=== PATIENT | male | born 1990 | race Caucasian/White ===

== ENCOUNTER 2020-02-13 14:26 | Emergency (ER) | payer BC, SELFPAY ==
[2020-02-13 14:30] VITALS: BMI 20.9
[2020-02-13 14:33] VITALS: BP 121/81; PULSE 90; RESP 16; TEMP 36.6; O2SAT 99
--- NOTE | 2020-02-13 14:37 | CT_ITS ---
WS: [id number] CT chest w con* [id number] REASON FOR EXAM: fall 25 feet off house. .. IV CONTRAST ADMINISTERED: Omnipaque 300, 95 mL. TOTAL EXAM DLP: 471.[address] scans at [facility] use at least one of these dose optimization techniques: automat ed exposure control; mA and/or kV adjustment per patient size (includes targeted exams where dose is matched to clinical indication); or iterative reconstruction. FINDINGS this study shows a fracture of the eighth rib at its angle. No pneumothorax or pleural react ion is seen. The pulmonary arteries fill readily there is no evidence of thromboembolic changes or pn eumonia contusions. The thyroid right and left lobes were normal. Clavicle show no fractures. The perfusion lung garcia show normal perfusion no evidence of abnormalities of the peripheral lungs. The mediastinum show no abnormalities. The aorta was normal no dissection is seen. No heart chamber changes are seen. The liver was normal as well as the spleen with no lacerations seen. There is considerable debris seen in the stomach no free fluid or air intra-abdominally is noted. Both kidneys are normal show no lacerations or hemorrhage. The gallbladder was normal. CT/CT chest w con* [id number] IMPRESSION: The remaining chest was within normal limits. Fracture of the eighth rib on the right
--- NOTE | 2020-02-13 14:37 | XR_ITS ---
WS: [id number] XR chest 1V portable [id number] REASON FOR EXAM: fall FINDINGS: The visible rib cage shows no definite fractures. The clavicles and shoulders are normal. The lung garcia are well aerated. No lung contusions, pneumothorax, pneumonia, or pulmonary edema. The hilum and apices are normal. No osseous abnormalities. XR/XR chest 1V portable [id number] IMPRESSION: Negative chest
--- NOTE | 2020-02-13 14:38 | ED_ITS ---
HPI - Fall General: Chief Complaint: Fall Stated Complaint: fell off house/rib pain Time Seen by Provider: 02/13/20 14:35 Source: patient Mode of arrival: ambulatory Limitations: no limitations History of Present Illness: HPI Narrative: 29-year-old male states he is working on a house and fell off a two-story roof roughly 20 feet. He states he landed on his right side has right rib pain since then. He denies any other injuries and has been amatory since the event. States pain is sharp in nature and rates it a 6 out of 10. Denies any shortness of breath. MD complaint: fall Onset (ago): minute(s) Fall from: from height (distance) Associated symptoms-after fall: Reports chest pain; Denies abdominal pain, headache(s) or neck pain Review of Systems Const: Denies: fever(s), chills, body aches or change in appetite Eyes: Denies: blurry vision or eye discomfort ENMT: Denies: throat pain or dental pain Card: Reports: chest pain Resp: Denies: dyspnea GI: Denies: abdominal pain, nausea, vomiting or diarrhea : Denies: dysuria Musc: Denies: neck pain or back pain Skin/Breast: Denies: rash Neuro: Denies: headache(s) Psych: Denies: depression Jesus/Lymph: Denies: easy bruising All/Imm: Denies: urticaria PFSH ED PFSH: Social History Smoking and tobacco status: never smoked Physical Exam Const: COMMON NORMALS: no acute distress, patient oriented x3 and healthy appearing HENMT: COMMON NORMALS: normocephalic and atraumatic HEAD & SCALP: normocephalic and atraumatic Eye: COMMON NORMALS: Equal, round and reactive pupils present and EOMs intact bilaterally PUPIL: Yes Equal, round and reactive pupils present Neck/C-Spine: COMMON NORMALS: full ROM and supple Chest: COMMONS NORMALS: normal inspection of the chest OTHER: tender over right chest Resp: COMMON NORMALS: normal respiratory effort, No retractions, No use of accessory muscles and clear to auscultation bilaterally AUSCULTATION: clear to auscultation bilaterally Cardio: COMMON NORMALS: regular rate, regular rhythm and No murmurs present (Cardio) RATE: regular rate RHYTHM: regular rhythm GI: COMMON NORMALS: Normal to inspection, nondistended, normoactive bowel sounds present, Soft to palpation, non-tender and no masses PALPATION: Yes Soft to palpation Extremity: COMMON NORMALS: normal to inspection and full ROM Neuro: COMMON NORMALS: patient oriented x3, moves all extremities and no focal motor deficits Psych: COMMON NORMALS: mental status grossly normal, Normal thought process present and cooperative THOUGHT PROCESS: Normal thought process present Skin: COMMON NORMALS: no rashes or lesions noted and no wounds GENERAL SKIN EXAM: no rashes or lesions noted Course Vital Signs: Vital signs: Vital Signs Temperature 97.9 F 02/13/20 14:33 Pulse Rate 90 02/13/20 14:33 Respiratory Rate 18 02/13/20 15:29 Blood Pressure 142/96 02/13/20 15:29 Pulse Oximetry 100 02/13/20 15:29 MDM - Fall MDM Narrative: Medical decision making narrative: Patient presents here with a rib fracture from a fall. Patient has no signs of lung injuries and no other injuries noted. Patient is stable for discharge and is to follow-up with his primary care doctor in 3 to 5 days. Lab Data: Labs: Lab Results 02/13/20 02/13/20 Range/Units 14:48 14:48 WBC 7.2 (4.0-10.0) 10^3/ uL RBC 5.25 (4.1-5.3) 10^6/u L Hgb 15.6 (11.7-16.6) g/dL Hct 45.5 (42.0-52.0) % MCV 86.7 (80-94) fL MCH 29.7 (28.0-34.0) pg MCHC 34.3 (30.0-36.0) g/dL RDW 12.6 (12.1-15.1) % Plt Count 245 (130-400) 10^3/c mm MPV 10.0 (7.4-10.4) fL Neut % (Auto) 57.6 % Lymph % (Auto) 34.5 % [place] % (Auto) 4.7 % Eos % (Auto) 1.1 % Baso % (Auto) 0.4 % Neut # (Auto) 4.2 (1.8-7.7) 10^3/u L Lymph # (Auto) 2.5 (0.8-4.8) 10^3/u L [place] # (Auto) 0.3 (0.2-0.9) 10^3/u L Eos # (Auto) 0.1 (0.0-0.8) 10^3/u L Baso # (Auto) 0.0 (0.0-0.1) 10^3/u L Nucleated RBC % (a uto) 0 % Nucleated RBCs # 0.0 /100WBC Sodium 140 (136-145) mmol/L Potassium 3.6 (3.5-5.1) mmol/L Chloride 100 (98-107) mmol/L Carbon Dioxide 26 (22-29) mmol/L Anion Gap 17.6 (5-19) BUN 19 (6-20) mg/dL Creatinine 1.1 (0.7-1.2) mg/dL GFR Calculation 80.3 L (90-130) mL/min Glucose 108 (65-115) mg/dL Calculated Osmolal ity 287 (285-295) mOsm/k g Calcium 9.9 (8.5-10.5) mg/dL Total Bilirubin 0.5 (0.15-1.2) mg/dL AST 281 H (0-40) U/L ALT 236 H (0-41) U/L Alkaline Phosphata se 59 (40-130) IU/L Total Protein 7.7 (6.6-8.7) g/dL Albumin 5.5 H (3.5-5.2) g/dL Globulin 2.2 (1.3-4.6) g/dL Imaging Data^: CXR: Radiologist's impression: [place] [address] XRay Report Signed Patient: Germain Woods Unit #: [id number] : 1990 Age/Sex: 29 / M ADM Date: 02/13/20 Loc: ER Room/Bed: Attending Dr: Ordering Provider/Ordering MD: Radha Duarte MD Date of Service: 02/13/20 Procedure(s): XR chest 1V portable [id number] Accession Number(s): [id number] Report Number: [id number] WS: [id number] XR chest 1V portable [id number] REASON FOR EXAM: fall FINDINGS: The visible rib cage shows no definite fractures. The clavicles and shoulders are normal. The lung garcia are well aerated. No lung contusions, pneumothorax, pneumonia, or pulmonary edema. The hilum and apices are normal. No osseous abnormalities. XR/XR chest 1V portable [id number] IMPRESSION: Negative chest CT Abd/Pel: Radiologist's impression: [address] [place] [address] CT Scan Report Signed Patient: Quique Bettencourt Unit #: [id number] : 01/02/1942 Age/Sex: 78 / M ADM Date: 02/13/20 Loc: ER Room/Bed: Attending Dr: Ordering Provider/Ordering MD: Radha Duarte MD Date of Service: 02/13/20 Procedure(s): CT chest abd pel w con* Accession Number(s): [id number] Report Number: [id number] WS: [id number] Examination: CT of the chest, abdomen pelvis. HISTORY: Abdominal pain TECHNIQUE: Patient was scanned with Omnipaque 300, 95 mL. FINDINGS: The chest shows previous sternotomy. The aorta shows a prominent stent in the right aorta. The azygos lymph node shows calcification. There is chronic obstructive pulmonary disease in both lung garcia which are mildly hypoaerated The pulmonary arteries fill readily no evidence of thromboembolic disease. The descending thoracic aorta shows heavy arteriosclerotic changes. There is a small amount of right pleural effusion evident. Along the left pleural surfaces heavy calcification over the diaphragm. This suggests asbestosis or previous inflammatory changes with calcification. CT of the abdomen pelvis show small amount of ascites bilaterally. The liver appears to be mildly contracted. The gallbladder shows a large solitary stone. The pancreas head, body, tail are normal. The spleen is of normal size and there is fluid seen adjacent to the spleen. The aorta inferior vena cava show no definite aneurysms. Anterior sclerotic changes of the iliac arteries. The distal aorta shows ectasia but no aneurysm. There is diverticulosis of the descending sigmoid colon. The urinary bladder was normal. The prostate is enlarged measures 6.6 x 4.8 cm concretions in the prostate are seen. The rectum is normal. The right kidney is a cyst measures 1.7 cm the left kidney appears to be normal. The lumbar spine shows mild degenerate changes the bony pelvis was normal. There is no definite lymphadenopathy seen in the aortic area CT/CT chest abd pel w con* IMPRESSION: There is evidence of a large defect in the gallbladder which appears to be a large stone. There is fluid seen in the right costophrenic angle. There is a small amount of bilateral ascites. The liver is slightly small. A small cyst of the right kidney. Ectasia of the distal abdominal aorta. There is calcification overriding the left hemidiaphragm raises the question of asbestosis. 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 Tendon is seen in the ascending aorta. Discharge Plan Discharge Patient Disposition: Home, Self-Care Clinical Impression: Right rib fracture Qualifiers: Encounter type: initial encounter Rib fracture type: single rib Fracture type: closed Qualified Code(s): S22.31XA - Fracture of one rib, right side, initial encounter for closed fracture Condition: Stable Prescriptions: [place] 5-325 mg tablet 1 tab PO Q6H PRN (Reason: pain) Qty: 14 RF: 0 No Action No Known Home Medications RF: 0 Referrals: Reno Ferguson MD [Primary Care Provider] - 1-3 days Discharge Diet: Advance as tolerated Discharge Activity: Resume usual activity Patient Instructions: Rib Fracture (ED) Coding Level of Care Code ED Fast Food Supervisor for Julieng Fwd Exam Comprehensive
[2020-02-13] MEDS: ondansetron 2 mg/ML SDV 2 mL 4 MG IVP (14:47)
[2020-02-13 14:49] VITALS: RESP 16; O2SAT 100
[2020-02-13] MEDS: morphine 4 mg/mL SDV 1 mL IVP (14:49)
[2020-02-13 14:58] LABS: Basophils % 0.4 %; Eosinophils # 0.1 10^3/uL (0.0-0.8); Eosinophils % 1.1 %; Hematocrit 45.5 % (42.0-52.0); Hemoglobin 15.6 g/dL (11.7-16.6); Lymphocytes # 2.5 10^3/uL (0.8-4.8); Lymphocytes % 34.5 %; Mean Corpuscular HGB Conc 34.3 g/dL (30.0-36.0); Mean Corpuscular Hemoglobin 29.7 pg (28.0-34.0); Mean Corpuscular Volume 86.7 fL (80-94); Monocytes # 0.3 10^3/uL (0.2-0.9); Monocytes % 4.7 %; Neutrophils # 4.2 10^3/uL (1.8-7.7); Neutrophils % 57.6 %; Nucleated Red Blood Cells % 0 %; Platelet Count 245 10^3/cmm (130-400); Red Blood Count 5.25 10^6/uL (4.1-5.3); Red Cell Distribution Width 12.6 % (12.1-15.1); White Blood Count 7.2 10^3/uL (4.0-10.0)
[2020-02-13] MEDS: iohexol 300 mg/mL 100 mL Btl IV (15:21)
[2020-02-13 15:29] VITALS: BP 142/96; RESP 18; O2SAT 100
[2020-02-13 15:29] LABS: Alanine Aminotransferase 236 U/L (0-41); Albumin Level 5.5 g/dL (3.5-5.2); Alkaline Phosphatase 59 IU/L (40-130); Anion Gap 17.6 (5-19); Aspartate Amino Transferase 281 U/L (0-40); Blood Urea Nitrogen 19 mg/dL (6-20); Calcium 9.9 mg/dL (8.5-10.5); Carbon Dioxide 26 mmol/L (22-29); Chloride 100 mmol/L (98-107); Globulin 2.2 g/dL (1.3-4.6); Glomerular Filtration Rate 80.3 mL/min (90-130); Glucose 108 mg/dL (65-115); Osmolality Calculated 287 mOsm/kg (285-295); Potassium 3.6 mmol/L (3.5-5.1); Sodium 140 mmol/L (136-145); Total Bilirubin 0.5 mg/dL (0.15-1.2); Total Protein 7.7 g/dL (6.6-8.7)
[2020-02-13 15:52] VITALS: BP 131/79; PULSE 69; RESP 18; O2SAT 98
== END 2020-02-13 15:51 | disposition home or self-care (01) ==
PROVIDERS: Emergency Provider Emergency Medicine; Family Provider Family Medicine; PCP Family Medicine
DX: S22.31XA Fracture of one rib, right side, initial encounter for closed fracture (principal); W13.2XXA Fall from, out of or through roof, initial encounter
CPT/HCPCS: 12345; 71045; 71260; 80053; 85025; 96374; 96375; 99282; 99283; J2270; J2405; Q9967

== ENCOUNTER 2025-07-22 11:48 | Emergency (ER) | payer MEDICAID, SELFPAY ==
--- OUTSIDE RECORDS SUMMARY | 2016-06-01 03:38 | XMS_ITS | Continuity of Care Document ---
Author Organization [facility] Address [address] [facility] [place] [address] Phone Care Team Providers Care Tile Applicator Name Role Phone Klarissa SCHAEFFER, Matt Unavailable Unavailable Medications Medication Instructions Dosage Effective Dates (start - stop) Status Comments Lotemax 0.5 % eye drops,suspension instill 1 drop by ophthalmic route 4 times every day into affected eye(s) - Active Vigamox 0.5 % eye drops instill 1 drop by Ophthalmic route 4 times every day in the right eye 1 drop - Active ERYTHROMYCIN (unknown strength) apply ointment to right eye 2 times a day. Not Available - Active TobraDex 0.3 %-0.1 % eye drops,suspension instill 1 drop by Ophthalmic route 4 times every day in the right eye 1 drop - Active Procedures Procedure Date Ophth Serv: Med Exam; Interm E 16 Ophth Serv: Med Exam; Interm E 16 Fit Contact Lens-tx Ocular Surface Disea se Ophth Serv: Med Exam; Interm E 16 Remov Fb Ext Eye; Corneal W/la 16 Offic/outpt E&m New Mod Sever 6 Advance Directives Directive Yes / No Effective Date File Name No Information Encounters Encounter Description Practice Location Reason(s) For Visit Diagnoses Date Provider Providers Copied on Encounter Marcus Chang , [address], [place], [address], [place] tel:[phone] [place] [facility] No Information Klarissa Gutierrez. [address], [place], [id number], [place]. tel:[phone] [facility] , [address] [place] [address], [place], [address], [place] tel:[phone] Lutherll e/[place] [facility] Medical follow-up (chief complaint) Foreign body in cornea, right eye, [facility] [address] [facility] [address], [place], [id number], [place]. tel:[phone] [facility] , [address] [place] [address], [place], [address], [place] tel:[phone] Tomercandace e/[place] [facility] Foriegn Body follow up (chief complaint) Foreign body in cornea, right eye, subsequent encounter Cyr Matt. [address] [place] [address] [address], [place], [id number], [place]. tel:[phone] [facility] , [address] [place] [address], [place], [address], [place] tel:[phone] [facility] e/[place] [facility] foreign body follow up (chief complaint) Foreign body in cornea, right eye, [facility] [address] [place] [address] [address], [place], [id number], [place]. tel:[phone] Offic/outpt E&m New Mod Sever [facility] , [address] [place] [address], [place], [address], [place] tel:[phone] Tomercandace e[facility] [facility] Metalic FB (chief complaint) Foreign body in cornea, right eye, initial encounter Marcus [facility]. [address] [facility], [address], [place], [id number], [place]. tel:[phone] Family History Family Member Type Diagnosis Age At Onset No Information Payers Payer name Insurance type Covered green party ID Authoriza tiapolinar(s) [employer] [facility] [id number] Social History Type Description Quantity Date Captured Comments Sex Male Smoking Status No Information Chief Complaint And Reason For Visit No Information Reason For Referral Reason For Referral No Information History Of Present Illness Encounter Date Complaint History Of Prese nt Illness Medical follow-up The 25 year ol d male presents for a Medical follow-up of a metal foreign body and subsequent rust ring removal. Pt reports he used the two different eye drops as directed. Eyes feel fine now. VA seems good and unchanged. Foriegn Body follow up The 25 ye ar old male presents for a 1 day foreign body/ Rust Ring follow up in the right eye. Patient reports improvement in the eight eye with the use, Vigamox and artificial tears. Patient says the discomfort, redness and scratchy sensation has dissipated and feels 100 percent better. foreign body follow up The 25 ye ar old male presents for a 4 days foreign body follow up in the right eye. Patient reports improvement in the eight eye with the use of TobraDex and Erythromycin. Patient says the discomfort, redness and scratchy sensation has dissipated. Metalic FB The 25 year old male presents for evaluation of Metallic FB in the right eye. It started about 1 day(s) ago. Today he went to Urgent Care and he was told he has a metallic FB with a rust ring in his right eye. He was told to come here so it can be removed. His eye is uncomfortable, scratchy and red. He is taking E-Mycin ointment 2 times a day. Functional Status Date Functional Assessmen t No Information Instructions Date Instruction Additional Infor alexandro Return with FB x 1 week for foll ow up Related to Foreign body in cornea, right eye, subsequent encounter Impression/Plan - BCL was remvoed from the right eye today while in the office. Patient can decrease Vigamox, 1 gtt TID and restart E-mycin at bedtime. Will start Lotemax (sample given), 1 gtt QID OD. Continue with AT to help keep eye lubricated. Related to Foreign body in cornea, right eye, subsequent encounter Follow up - Return with FB x 1 week for follow up Related to Foreign body in cornea, right eye, subsequent encounter Return in 2 days carlos Cyr O.D. for Follow-up Visit. Related to Foreign body in cornea, right eye, subsequent encounter Impression/Plan - W ill leave BCL in place until follow up visit on . Continue with regimen of Vigamox and lubricating tears. Instructed patient to call with any increase of pain or light sensitivity. Related to Foreign body in cornea, right eye, subsequent encounter Follow up - Return in 2 days with Matt Cyr O.D. for Follow-up Visit. Related to Foreign body in cornea, right eye, subsequent encounter Return in 1-2 days w jerson Cyr O.D. for Follow-up Visit. Related to Foreign body in cornea, right eye, subsequent encounter Impression/Plan - Explained to patient that small area of Cornea has a rust ring and will need to removed. Patient given a drop of Paracaine and small area of rust @ 6 o'clock was removed using forceps. Will place BCL OD. Patient to stop Tobradex and E-mycin. Start Vigamox 1 gtt QID OD. AT to be used to keep BCL moist. Instructed patient to call with increase of discomfort or if BCL comes out. Patient is not to remove lens himself.Air [employer]ix Night [employer] Day 8.4 Lot #[id number] Related to Foreign body in cornea, right eye, subsequent encounter Follow up - Return tomorrow with Matt Cyr O.D. for Follow-up Visit. Related to Foreign body in cornea, right eye, subsequent encounter Return in 2 days Related to Fore ign body in cornea, right eye, initial encounter Impression/Plan - F oreign body removed without complication. Will likely have rust ring that will need removing next visit. Continue e-mycin at bedtime, Tobradex QID. Related to Foreign body in cornea, right eye, initial encounter Follow up - Return in 2 days Re lated to Foreign body in cornea, right eye, initial encounter Assessments Type Assessment Date No Information Patient Care Teams Name Effective Dates (start - stop) Status Members No Information
[2025-07-22 11:54] VITALS: BP 137/92; PULSE 87; RESP 16; TEMP 36.8; O2SAT 100; BMI 3026.8
--- OUTSIDE RECORDS SUMMARY | 2025-07-22 12:46 | XMS_ITS | Encounter Summary ---
Author Organization [facility] Address [address] [place] [address] Care Team Providers Care Utility Maintenance Worker Name Role Phone Unavailable Primary Care Provider Unavailabl e Encounter Details Date Type Department Care Team (Latest Contact Info) Description 06/30/2000 Outpatient Historical [facility] Romaine Martin MD [address] [place] [address] Unspecified otitis media (Primary Dx); Acute pharyngitis Social History Tobacco Use Types Packs/Day Years Used Date Smoking Tobacco: Never Assessed Sex and Gender Information Value Date Recorded Sex Assigned at Not on file 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
--- OUTSIDE RECORDS SUMMARY | 2025-07-22 12:46 | XMS_ITS | Clinical Summary ---
Author Organization [facility] Address [address] [place]: Epic Prelude ADT [place] [address] Care Team Providers Care Asbestos Microscopist Name Role Phone Unavailable Primary Care Provider Unavailabl e Immunizations Immunization Administration Dates Next Due (M-M-R II/PRIORIX)(12 MO UP) MEASLES, MUMPS AND RUBELLA VIRUS VACCINE, 0.5 ML IM/SUBCUT 10/01/1997,09/21/1995 Dt Dtp Dtap Vaccine 10/16/2000, 8,05/14/1996,1995,04/14/1993,01/12/1993 HIB, Unspecified Formulation 09/21/1995,04/14/19 93,01/12/1993 Hepatitis A Vaccine 05/16/2008 Hepatitis B Vaccine 05/14/1996,03/13/1996,1995 IPV/OPV 10/01/1997, 6,09/21/1995,1992 Social History Tobacco Use Types Packs/Day Years Used Date Smoking Tobacco: Never Assessed Sex and Gender Information Value Date Recorded Sex Assigned at Not on file 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
--- OUTSIDE RECORDS SUMMARY | 2025-07-22 12:46 | XMS_ITS | Encounter Summary ---
Author Organization [facility] Address [address] [place] [address] Care Team Providers Care Brazer Production Line Name Role Phone Unavailable Primary Care Provider Unavailabl e Encounter Details Date Type Department Care Team (Latest Contact Info) Description 06/13/2000 Outpatient Historical [facility] M[facility]i [address] [place] [id number] Jignesh Martinez MD NO ADDRESS ON FILE Encopresis(307.7) (Primary Dx); Contusion of toe Social History Tobacco Use Types Packs/Day Years Used Date Smoking Tobacco: Never Assessed Sex and Gender Information Value Date Recorded Sex Assigned at Not on file 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
--- OUTSIDE RECORDS SUMMARY | 2025-07-22 12:46 | XMS_ITS | Encounter Summary ---
Author Organization [facility] Address [address] [place] [address] Care Team Providers Care Manager Social Media Name Role Phone Unavailable Primary Care Provider Unavailabl e Encounter Details Date Type Department Care Team (Latest Contact Info) Description 07/27/2000 Outpatient Historical [facility] Romaine Martin MD [address] [place] [address] Acute sinusitis, unspecified (Primary Dx); Bronchitis, not specified as acute or chronic Social History Tobacco Use Types Packs/Day Years Used Date Smoking Tobacco: Never Assessed Sex and Gender Information Value Date Recorded Sex Assigned at Not on file 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
--- OUTSIDE RECORDS SUMMARY | 2025-07-22 12:46 | XMS_ITS | Encounter Summary ---
Author Organization [employer] [facility] Address [address] [place] [address] Care Team Providers Care Information Technology Coordinator Name Role Phone Unavailable Primary Care Provider Unavailabl e Encounter Details Date Type Department Care Team (Latest Contact Info) Description 02/05/2001 Outpatient Historical [facility] Jerry Harrison NO ADDRESS ON FILE Streptococcal sore throat (Primary Dx); Acute pharyngitis Social History Tobacco Use Types Packs/Day Years Used Date Smoking Tobacco: Never Assessed Sex and Gender Information Value Date Recorded Sex Assigned at Not on file 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
--- OUTSIDE RECORDS SUMMARY | 2025-07-22 12:46 | XMS_ITS | Encounter Summary ---
Author Organization [facility] Address [address] [place] [address] Care Team Providers Care Adhesive Sprayer Name Role Phone Unavailable Primary Care Provider Unavailabl e Encounter Details Date Type Department Care Team (Latest Contact Info) Description 12/04/1998 Outpatient Historical [facility] [address] [place] [phone] Jignesh Martinez MD NO ADDRESS ON FILE Encopresis(307.7) (Primary Dx) Social History Tobacco Use Types Packs/Day Years Used Date Smoking Tobacco: Never Assessed Sex and Gender Information Value Date Recorded Sex Assigned at Not on file 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
--- OUTSIDE RECORDS SUMMARY | 2025-07-22 12:46 | XMS_ITS | Encounter Summary ---
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
--- OUTSIDE RECORDS SUMMARY | 2025-07-22 12:46 | XMS_ITS | Encounter Summary ---
Author Organization [facility] Address [address] [place] [address] Care Team Providers Care Choke Setter Name Role Phone Unavailable Primary Care Provider Unavailabl e Encounter Details Date Type Department Care Team (Latest Contact Info) Description 04/08/2002 Outpatient Historical [facility] [address] [place] [phone] Jignesh Martinez MD NO ADDRESS ON FILE NONINFEC GASTROENTERIT NEC (Primary Dx) Social History Tobacco Use Types Packs/Day Years Used Date Smoking Tobacco: Never Assessed Sex and Gender Information Value Date Recorded Sex Assigned at Not on file 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
--- OUTSIDE RECORDS SUMMARY | 2025-07-22 12:46 | XMS_ITS | Encounter Summary ---
Author Organization [facility] Address [address] [place] [address] Care Team Providers Care Compounder Name Role Phone Unavailable Primary Care Provider Unavailabl e Encounter Details Date Type Department Care Team (Late st Contact Info) Description 10/16/2000 Outpatient Historical [facility] [address] [place] [address] Jignesh Martinez MD NO ADDRESS ON FILE Social History Tobacco Use Types Packs/Day Years Used Date Smoking Tobacco: Never Assessed Sex and Gender Information Value Date Recorded Sex Assigned at Not on file 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
--- OUTSIDE RECORDS SUMMARY | 2025-07-22 12:46 | XMS_ITS | Encounter Summary ---
Author Organization [facility] Address [address] [place] [address] Care Team Providers Care Analyst Geochemical Prospecting Name Role Phone Unavailable Primary Care Provider Unavailabl e Encounter Details Date Type Department Care Team (Latest Contact Info) Description 06/13/[address] 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
--- OUTSIDE RECORDS SUMMARY | 2025-07-22 12:46 | XMS_ITS | Encounter Summary ---
Author Organization [facility] Address [address] [place] [address] Care Team Providers Care Lap Polisher Name Role Phone Unavailable Primary Care Provider Unavailabl e Encounter Details Date Type Department Care Team (Latest Contact Info) Description 11/30/1998 Outpatient Historical [facility] Jorge Pace, Zhang Hernandes MD [address] [place] [phone] Incontinence of feces (Primary Dx); Impetigo Social History Tobacco Use Types Packs/Day Years Used Date Smoking Tobacco: Never Assessed Sex and Gender Information Value Date Recorded Sex Assigned at Not on file 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
--- NOTE | 2025-07-22 13:25 | ED_ITS ---
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 Tetanus not up-to-date. This occurred just prior to arrival. He denies any visual changes. No sensation changes. Associated symptoms: Denies chills, fever(s), nausea or vomiting Related Data Previous Rx's ?Medication ?Instructions ?Recorded hydrocodone 5 mg-acetaminophen 325 1 tab PO Q6H PRN pa in #14 tabs 02/12/20 mg tablet ([employer]) cephalexin 500 mg capsule 500 mg PO BID 3 days #6 caps 07/22/25 Allergies Allergy/AdvReac Type Severity Reaction Status Date / Time No Known Allergies Allergy Verified 07/22/25 11:59 Review of Systems 2 General: Reports: 10 or more systems reviewed and unremarkable except in HPI and below Const: Denies: fever(s), chills, body aches or change in appetite Eyes: Reports: other (Laceration to left eyelid.); Denies: change in vision, blurry vision, blind spots, photophobia, eye discomfort, eye discharge or eye redness ENMT: Denies: throat pain or dental pain Card: Reports: chest pain; Denies: palpitations Resp: Denies: dyspnea or non-productive cough GI: Denies: abdominal pain, nausea, vomiting or diarrhea : Denies: dysuria Musc: Denies: neck pain or back pain Skin/Breast: Denies: rash Neuro: Denies: headache(s) Psych: Denies: depression Jesus/Lymph: Denies: easy bruising All/Imm: Denies: urticaria PFSH ED 2 PFSH: Social History Smoking and tobacco/nicotine status: never used tobacco/nicotine Physical Exam 2 Const: COMMON NORMALS: no acute distress, average body habitus, patient oriented x3, no limitations, healthy appearing, alert and well nourished HENMT: COMMON NORMALS: Normal external nose present FACE & SINUS IMAGES: 1. laceration 2. surface avulsion NOSE: Normal external nose present and Normal nares present Eye: COMMON NORMALS: Equal, round and reactive pupils present, EOMs intact bilaterally, conjunctivae normal, no scleral icterus, no papilledema, normal visual park by confrontation and fundi normal bilaterally VISUAL ACUITY: Y es acuity normal VISUAL PARK: No peripheral vision loss CONJUNCTIVA: Yes conjunctivae normal SCLERA: sclerae normal CORNEA: Yes corneas normal P UPIL: Yes Equal, round and reactive pupils present DIRECT OPHTHALMOSCOPY: Yes no papilledema and Yes fundi normal bilaterally Chest: COMMONS NORMALS: normal inspection of the chest and normal palpation of entire chest wall Resp: COMMON NORMALS: normal respiratory effort, No retractions and No use of accessory muscles Cardio: COMMON NORMALS: regular rate and regular rhythm RATE: regular rate RHYTHM: regular rhythm GI: COMMON NORMALS: Normal to inspection, nondistended, normoactive bowel sounds present, Soft to palpation, non-tender and No hepatosplenomegaly present PALPATION: Yes Soft to palpation and Yes No hepatosplenomegaly present : COMMON NORMALS: Yes no CVA tenderness BLADDER/KIDNEY EXAM: Yes no CVA tenderness Back/Pelvis: COMMON NORMALS: no CVA tenderness Neuro: COMMON NORMALS: patient oriented x3 SENSORIUM/ORIENTATION: Yes alert Procedures Laceration Laceration 1: Site: face (left eyelid) Side (If applicable): left Size (cm): 3.5 Description: flap, irregular and clean Depth: simple, single layer Local Anesthetic: lidocaine 1% Amount of anesthesia used (mL): 3.5 Pre-repair: wound explored, irrigated extensively and deep structures intact Skin layer closed with: nylon Size (cm): 5-0 Number of sutures: 3 Technique: simple, interrupted Course 2 Vital Signs: Vital signs: Vital Signs Temperature 98.2 F 07/22/25 11:54 Pulse Rate 87 07/22/25 11:54 Respiratory Rate 16 07/22/25 11:54 Blood Pressure 137/92 07/22/25 11:54 Pulse Oximetry 100 07/22/25 11:54 MDM - Wound/Laceration Medical Decision Making Patient is a pleasant 34-year-old male that was utilizing a jig 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 He did have on his safety goggles. A contusion to his left superior mid shoulder with catching his close, and his left eyelid. He required 3 sutures in his left eyelid, cautiously. Patient will go to ophthalmology for left eye exam. Recommended removing sutures in 5-6 days. Tetanus updated Medical Records I reviewed the patient's medical records. No radiology studies performed this visit Discharge Plan Discharge Patient Disposition: Home Clinical Impression: Sciatica Qualifiers: Laterality: bilateral Qualified Code(s): M54.31 - Sciatica, right side Condition: Stable Prescriptions: New cephalexin 500 mg capsule 500 mg PO BID 3 Days Qty: 6 0RF No Action [employer] 5-325 mg tablet 1 tab PO Q6H PRN (Reason: pain) Qty: 14 0RF Discharge Orders: Discharge ED (Routine); Ordered 07/22/25 Ordered By: Glenna Oglesby Referrals: Reno Ferguson MD [Primary Care Provider, [facility]] Discharge Diet: Usual diet Discharge Activity: Resume usual activity Patient Instructions: Diphtheria/Acellular Pertussis/Tetanus Booster Vaccine (By injection), Laceration (ED), Patient Portal & [facility] Instructions Activity Restrictions/Additional Instructions: - Remove sutures in 5-6 days. You can come here or make an appointment with your primary care physician. -Antibiotics at the pharmacy: Cephalexin. Use as directed - Cover while you are at work. Do not apply antibiotic ointment longer than 24 hours. Apply Vaseline to the surface, tape/cover. - Ibuprofen and Tylenol for pain -Ice, 5x a day -Return to ED if there is redness outside of this area, inability to see, blurry vision, streaking, increasing pain, 100.4 degrees fever. - Call [facility] to make an appointment for visual exam on the left eye. Thank you for choosing [facility] for your healthcare needs today. You have been screened and evaluated and felt safe for discharge. Health conditions do change or evolve sometimes and as such it is important that you follow up with your Primary Doctor to be re checked, 3-5 days is a general good time frame for follow up. You are always welcome to return to the ED for re assessment if your symptoms are worsening or you have new concerns Print Language: Macedonian Coding Level of Care Code ED Custom Designer for Marylu Mccormick
[2025-07-22] MEDS: orphenadrine 30 mg/mL Inj 2 mL 60 MG IM (13:30)
[2025-07-22] MEDS: tetanus-dipt-pertussis 0.5 mL SDV IM (13:31)
== END 2025-07-22 15:11 | disposition home or self-care (01) ==
PROVIDERS: Emergency Provider Physician Assistant; PCP Family Medicine
DX: S01.112A Laceration without foreign body of left eyelid and periocular area, initial encounter (principal); M54.32 Sciatica, left side; W26.8XXA Contact with other sharp object(s), not elsewhere classified, initial encounter
CPT/HCPCS: 12013; 90715; 96372; 99284; J1885; J2360; J9999